=== PATIENT | male | born 1940 | race Caucasian/White ===

== ENCOUNTER 2017-12-13 19:05 | Emergency (ER) | payer OTHER, MEDICAID ==
[~2017-12-13] VITALS: Ht 175.3 cm; Wt 65.8 kg
[~2017-12-13 19:05] MED LIST: ASA81 PO; ASCO500T20 PO; CARB-61 PO; COM200 PO; CYAN100020 SL; DOCU250C14 PO; DONE5TAB3 PO; MULT-1117; OLAN5TAB3 PO; SYN75 PO
[2017-12-13 19:07] VITALS: BP_SYST 132
[2017-12-13] MEDS ORDERED: NS 500 ML IV ONE (20:00)
[2017-12-13] MEDS ORDERED: NACL 0.9% 500 ML IV ONE (20:00)
[2017-12-13] MEDS ORDERED: HALOPERIDOL LACTATE 5 MG/ML VIAL IM ONE (21:15)
[2017-12-13 23:45] VITALS: BP_SYST 110
== END 2017-12-13 23:45 | disposition home or self-care (01) ==
LOC: SED 19:05
DX: R10.9 Unspecified abdominal pain (principal); R11.10 Vomiting, unspecified; G30.9 Alzheimer's disease, unspecified; F02.80 Dementia in other diseases classified elsewhere, unspecified severity, without behavioral disturbance, psychotic disturbance, mood disturbance, and anxiety; Z86.79 Personal history of other diseases of the circulatory system; Z79.82 Long term (current) use of aspirin; Z79.899 Other long term (current) drug therapy; N39.0 Urinary tract infection, site not specified; Z98.890 Other specified postprocedural states
CPT/HCPCS: 71045; 74176; 93005; 99284; J1630